=== PATIENT | male | born 1955 | race Caucasian/White ===

== ENCOUNTER 2024-11-04 00:42 | Emergency (ER) | payer MEDICARE ==
[~2024-11-04] VITALS: Ht 188 cm; Wt 97.7 kg
[2024-11-04 01:29] LABS: BASO # 0.1 10^3/uL (0.0-0.2); BASO % 1.3 % (0.0-1.0); EOS # 0.2 10^3/uL (0.0-0.5); EOS % 3.3 % (0.0-3.0); LYMPH # 1.6 10^3/uL (1.5-5.0); LYMPH % 26.1 % (24.0-44.0); MONO # 0.7 10^3/uL (0.0-0.8); MONO % 11.6 % (2.0-8.0); NEUTROPHILS # 3.5 10^3/uL (1.5-8.5); NEUTROPHILS % 57.5 % (36.0-66.0); PLATELET COUNT, AUTOMATED 225 10^3/uL (150-450)
[2024-11-04] MEDS: ASPIRIN 81 MG CHEWABLE TABLET PO ONE (03:02)
[2024-11-04] MEDS: MAALOX 30 ML SUSP *UDC PO ONE (03:03)
[2024-11-04 03:10] LABS: ETHYL ALCOHOL (ETHANOL) 0.027 % (0.000-0.010)
[2024-11-04 03:11] LABS: CALCIUM LEVEL 8.4 MG/DL (8.3-10.6); CARBON DIOXIDE LEVEL 22 MMOL/L (20-31); CHLORIDE LEVEL 105 MMOL/L (98-107); CK-MB VALUE MASS 3.3 NG/ML (<3.6); CREATININE FOR GFR 0.92 MG/DL (0.70-1.30); GLOMERULAR FILTRATION RATE > 90.0 (>49); POTASSIUM SERUM 4.1 MMOL/L (3.5-5.1); SODIUM LEVEL 141 MMOL/L (136-145)
[2024-11-04 03:13] LABS: CPK CREATINE PHOSPHOKINASE 191 U/L (46-171); MB/CK RELATIVE INDEX 1.72 (< OR =4)
[2024-11-04 04:00] LABS: CK-MB VALUE MASS 3.5 NG/ML (<3.6)
[2024-11-04 04:06] LABS: CPK CREATINE PHOSPHOKINASE 192.0 U/L (46-171); MB/CK RELATIVE INDEX 1.82 (< OR =4)
[2024-11-04] MEDS ORDERED: CARA1TAB6 PO (04:14)
[2024-11-04 04:24] VITALS: BP 117/84; TEMP 98.2; O2SAT 96
== END 2024-11-04 04:30 | disposition home or self-care (01) ==
LOC: M ED 00:42
DX: R07.89 Other chest pain (principal); K21.9 Gastro-esophageal reflux disease without esophagitis; F10.10 Alcohol abuse, uncomplicated; Z79.899 Other long term (current) drug therapy